=== PATIENT | male | born 1970 | race Caucasian/White ===

== ENCOUNTER 2020-07-10 00:49 | Emergency (ER) | payer BC, SELFPAY ==
[2020-07-10 01:40] LABS: Absolute Lymphocytes (CBC) 2.6 K/uL (0.7-4.9); Basophils % 0.7 % (0-1.3); Hematocrit 41.4 % (39.6-49.0); Lymphocytes % 35.5 % (15.3-44.8); MPV 7.7 fL (7.6-11.3); Protime INR 0.88; RBC Red Blood Cell Count 4.55 M/uL (4.33-5.43)
[2020-07-10 02:16] LABS: ALT/SGPT 87 U/L (12-78); AST/SGOT 34 U/L (15-37); Albumin 3.7 g/dL (3.4-5.0); Alkaline Phosphatase 76 U/L (45-117); BUN Blood Urea Nitrogen 15 mg/dL (7-18); Bicarbonate 24 mmol/L (21-32); Bilirubin Direct 0.1 mg/dL (0-0.2); Bilirubin Total 0.4 mg/dL (0.2-1.0); Glucose Level 97 mg/dL (74-106); NT PRO-BNP 18 pg/mL (<125); Potassium 3.4 mmol/L (3.5-5.1); Protein, Total 7.6 g/dL (6.4-8.2); Sodium Level 139 mmol/L (136-145); Troponin (Emerg Dept Use Only) < 0.02 ng/mL (0.0-0.045)
[2020-07-10] MEDS ORDERED: NA CHLORIDE 0.9% 1,000 ML ONE (02:43)
[2020-07-10 02:58] LABS: Creatine Phosphokinase 149 U/L (39-308)
[2020-07-10 03:04] LABS: Barbiturates NEGATIVE (NEGATIVE); Benzodiazepines NEGATIVE (NEGATIVE); Cocaine NEGATIVE (NEGATIVE); METHAMPHETAM NEGATIVE (NEGATIVE); Methadone NEGATIVE (NEGATIVE); Opiates NEGATIVE (NEGATIVE); Phencyclidine NEGATIVE (NEGATIVE); THC Cannibis NEGATIVE (NEGATIVE)
[2020-07-10 03:26] LABS: Urine Blood 2+ (NEG); Urine Glucose NEGATIVE (NEG); Urine Protein NEGATIVE (NEG); Urine Specific Gravity 1.025 (1.005-1.030)
--- NOTE | 2020-07-10 05:02 | EDPHYS ---
Physician Documentation [facility] Name: Noah Barnes Age: 49 yrs Sex: Male : 1970 Arrival Date: 07/10/2020 Time: 00:55 Bed 4 Private MD: ED Physician Darrell Chopra HPI: 07/10 01:42 This 49 yrs old Male presents to ER via Ambulatory with complaints of mh7 Shoulder Pain, Palpitations, Dizziness, Nausea. 01:43 The patient presents with a history of heart racing. Context: The symptoms occur at mh7 rest. Onset: The symptoms/episode began/occurred today. Duration: The patient or guardian reports multiple episodes, that are intermittent, that wax and wane. Modifying factors: The symptoms are aggravated by nothing. The symptoms are alleviated by nothing. Associated signs and symptoms: Pertinent positives: chest pain, lightheadedness, nausea, Pertinent negatives: cough, fever, SOB, syncope, near-syncope, unusual stressors, vertigo, vomiting. Severity of symptoms: At their worst the symptoms were moderate today, in the emergency department the symptoms have improved moderately. Historical: - Allergies: 01:13 No Known Allergies; bb - Home Meds: 01:13 lisinopril 40 mg Oral tab 1 tab once daily [Active]; amlodipine 10 mg tab 1 tab once bb daily [Active]; - PMHx: 01:13 Hypertension; bb - PSHx: 01:13 None; bb - Immunization history:: Adult Immunizations up to date. - Social history:: Smoking status: Patient reports the use of cigarette tobacco products, denies chronic smoking, but will smoke occasionally, Patient uses alcohol, Patient/guardian denies using street drugs. ROS: 01:43 Constitutional: Negative for fever, chills, and weight loss, Eyes: Negative for injury, mh7 pain, redness, and discharge, ENT: Negative for injury, pain, and discharge, Neck: Negative for injury, pain, and swelling, Respiratory: Negative for shortness of breath, cough, wheezing, and pleuritic chest pain, Back: Negative for injury and pain, : Negative for injury, bleeding, discharge, and swelling, MS/Extremity: Negative for injury and deformity, Skin: Negative for injury, rash, and discoloration, Neuro: Negative for headache, weakness, numbness, tingling, and seizure, Psych: Negative for depression, anxiety, suicide ideation, homicidal ideation, and hallucinations, Allergy/Immunology: Negative for hives, rash, and allergies, Endocrine: Negative for neck swelling, polydipsia, polyuria, polyphagia, and marked weight changes, Hematologic/Lymphatic: Negative for swollen nodes, abnormal bleeding, and unusual bruising. Exam: 01:43 Constitutional: This is a well developed, well nourished patient who is awake, alert, mh7 and in no acute distress. Head/Face: Normocephalic, atraumatic. Eyes: Pupils equal round and reactive to light, extra-ocular motions intact. Lids and lashes normal. Conjunctiva and sclera are non-icteric and not injected. Cornea within normal limits. Periorbital areas with no swelling, redness, or edema. Neck: Trachea midline, no thyromegaly or masses palpated, and no cervical lymphadenopathy. Supple, full range of motion without nuchal rigidity, or vertebral point tenderness. No Meningismus. Chest/axilla: Normal chest wall appearance and motion. Nontender with no deformity. No lesions are appreciated. 01:43 Respiratory: Lungs have equal breath sounds bilaterally, clear to auscultation and percussion. No rales, rhonchi or wheezes noted. No increased work of breathing, no retractions or nasal flaring. Abdomen/GI: Soft, non-tender, with normal bowel sounds. No distension or tympany. No guarding or rebound. No evidence of tenderness throughout. Back: No spinal tenderness. No costovertebral tenderness. Full range of motion. Skin: Warm, dry with normal turgor. Normal color with no rashes, no lesions, and no evidence of cellulitis. MS/ Extremity: Pulses equal, no cyanosis. Neurovascular intact. Full, normal range of motion. Neuro: Awake and alert, GCS 15, oriented to person, place, time, and situation. Cranial nerves II-XII grossly intact. Motor strength 5/5 in all extremities. Sensory grossly intact. Cerebellar exam normal. Normal gait. Psych: Awake, alert, with orientation to person, place and time. Behavior, mood, and affect are within normal limits. 01:43 Cardiovascular: Rate: tachycardic, Rhythm: regular, Pulses: no pulse deficits are appreciated, Heart sounds: normal, normal S1and S2, Edema: is not appreciated, JVD: is not appreciated. Vital Signs: 01:09 BP 167 / 98; Pulse 114; Resp 16 S; Temp 97.8(O); Pulse Ox 98% on R/A; Weight 136.08 kg bb (R); Height 6 ft. 1 in. (185.42 cm) (R); Pain 4/10; 02:28 BP 135 / 89; Pulse 93; Resp 18; Pulse Ox 98% on R/A; mg2 04:19 BP 142 / 80; Pulse 76; Resp 18; Pulse Ox 100% on R/A; mg2 05:00 BP 127 / 76; Pulse 63; Resp 18; Pulse Ox 95% on R/A; wh 01:09 Body Mass Index 39.58 (136.08 kg, 185.42 cm) bb MDM: 04:59 Differential diagnosis: arrythmia, dehydration, stress disorder, Palpitations. Data [facility] reviewed: vital signs, nurses notes, lab test result(s), cardiac enzymes, CBC, electrolytes, urinalysis, urine drug screen, EKG, radiologic studies, plain films. Data interpreted: Pulse oximetry: on room air is 100 %. Interpretation: normal. Counseling: I had a detailed discussion with the patient and/or guardian regarding: the historical points, exam findings, and any diagnostic results supporting the discharge/admit diagnosis, the presence of at least one elevated blood pressure reading (>120/80) during this emergency department visit, lab results, radiology results, to return to the emergency department if symptoms worsen or persist or if there are any questions or concerns that arise at home. Response to treatment: the patient's symptoms have resolved after treatment, the patient's blood pressure is in an acceptable range, mental status has returned to baseline, the patient no longer shows bradycardia, the patient is not short of breath, the patient is not tachycardic, the patient's pain is gone, the patient's temperature has normalized. Refusal of service: The patient/guardian displays adequate decision making capability and despite a detailed discussion of alternatives, benefits, risks, and consequences refuses: Admission to the hospital for further work-up and treatment. 05:01 Patient medically screened. mh7 07/10 01:12 Order name: Basic Metabolic Panel; Complete Time: 03:38 mg2 07/10 01:12 Order name: CBC with Diff; Complete Time: 01:53 mg2 07/10 01:12 Order name: LFT's; Complete Time: 03:38 mg2 07/10 01:12 Order name: Magnesium; Complete Time: 03:38 mg2 07/10 01:12 Order name: NT PRO-BNP; Complete Time: 03:38 mg2 07/10 01:12 Order name: PT-INR; Complete Time: 03:38 mg2 07/10 01:12 Order name: Troponin (emerg Dept Use Only); Complete Time: 03:38 mg2 07/10 01:53 Order name: UDS; Complete Time: 03:38 7 07/10 01:58 Order name: Thyroid Stimulating Hormone; Complete Time: 03:38 EDMS 07/10 02:13 Order name: Urine Dipstick--Ancillary (enter results); Complete Time: 03:38 mt 07/10 02:21 Order name: D-Dimer [facility] 07/10 02:21 Order name: CPK [facility] 07/10 01:12 Order name: XRAY Chest (1 view) [facility] 07/10 01:12 Order name: EKG; Complete Time: 01:13 mg2 07/10 01:12 Order name: Cardiac monitoring; Complete Time: 01:25 mg2 07/10 01:12 Order name: EKG - Nurse/Tech; Complete Time: 01:12 mg2 07/10 01:12 Order name: IV Saline Lock; Complete Time: 01:25 mg2 07/10 01:12 Order name: Labs collected and sent; Complete Time: 01:25 mg2 07/10 01:12 Order name: O2 Per Protocol; Complete Time: 01:25 mg2 07/10 01:12 Order name: O2 Sat Monitoring; Complete Time: 01:25 mg2 07/10 01:53 Order name: Urine Dipstick-Ancillary (obtain specimen); Complete Time: 02:20 7 07/10 02:46 Order name: D-Dimer; Complete Time: 03:38 EDMS 07/10 02:46 Order name: Creatine Phosphokinase; Complete Time: 03:38 EDMS 07/10 04:13 Order name: Troponin (emerg Dept Use Only) [facility] 07/10 04:14 Order name: Troponin (Emerg Dept Use Only); Complete Time: 04:56 EDMS Administered Medications: 02:22 Drug: NS 0.9% 1000 ml Route: IV; Rate: 1000 ml; Site: right antecubital; mg2 05:10 Follow up: Response: No adverse reaction; IV Status: Completed infusion wh Disposition: 07/10/20 05:01 Discharged to Home. Impression: Palpitations, Chest pain, unspecified. - Condition is Stable. - Discharge Instructions: Nonspecific Chest Pain, Qmdl-te-[id number], Palpitations, [id number]-[id number]. - Medication Reconciliation Form, Thank You Letter, Antibiotic Education, Prescription Opioid Use form. - Follow up: Private Physician; When: 1 - 2 days; Reason: Worsening of condition, Recheck today's complaints, Continuance of care, Re-evaluation by your physician. Follow up: Kev Ochoa MD; When: 1 - 2 days; Reason: Worsening of condition, Recheck today's complaints. - Problem is new. - Symptoms have improved. Signatures: Dispatcher [employer] EDIA Pennie Avila RN RN Ling Pacheco RN RN Justin Velazquez RN RN [facility] Darrell Chopra MD MD mh7 Corrections: (The following items were deleted from the chart) 01:57 01:53 THYROID STIMULAT HORMONE+C.LAB.BRZ ordered. [facility] EDMS 02:45 02:21 D-Dimer ordered. [facility] EDIA 02:45 02:21 Creatine Phosphokinase ordered. [facility] EDMS 05:10 05:01 07/10/2020 05:01 Discharged to Home. Impression: Palpitations; Chest pain, wh unspecified. Condition is Stable. Forms are Medication Reconciliation Form, Thank You Letter, Antibiotic Education, Prescription Opioid Use. Follow up: Private Physician; When: 1 - 2 days; Reason: Worsening of condition, Recheck today's complaints, Continuance of care, Re-evaluation by your physician. Follow up: Kev Ochoa; When: 1 - 2 days; Reason: Worsening of condition, Recheck today's complaints. Problem is new. Symptoms have improved. mh7
--- NOTE | 2020-07-10 05:02 | ER ---
Nurse's Notes [facility] Name: Noah Barnes Age: 49 yrs Sex: Male : 1970 Arrival Date: 07/10/2020 Time: 00:55 Bed 4 Private MD: Diagnosis: Palpitations;Chest pain, unspecified Presentation: 07/10 01:09 Chief complaint: Patient states: he was having trouble sleeping and was at his computer bb when he started having non-radiating left arm pain and felt his heart racing with a small bout of nausea and he felt light-headed. Coronavirus screen: At this time, the client does not indicate any symptoms associated with coronavirus-19. Ebola Screen: No symptoms or risks identified at this time. Initial Sepsis Screen: Does the patient meet any 2 criteria? No. Patient's initial sepsis screen is negative. Does the patient have a suspected source of infection? No. Patient's initial sepsis screen is negative. Risk Assessment: Do you want to hurt yourself or someone else? Patient reports no desire to harm self or others. Onset of symptoms was July 10, 2020. 01:09 Method Of Arrival: Ambulatory bb 01:09 Acuity: ISMAEL 3 bb Triage Assessment: 01:13 General: Appears in no apparent distress. obese, Behavior is calm, cooperative. Pain: bb Complains of pain in left arm Pain currently is 4 out of 10 on a pain scale. Neuro: Level of Consciousness is awake, alert, obeys commands, Oriented to person, place, time, situation. Cardiovascular: Capillary refill < 3 seconds Patient's skin is warm and dry. Respiratory: Respiratory effort is even, unlabored, Respiratory pattern is regular. GI: Reports pt does not report any GI symptoms. Derm: Skin is pink, warm \T\ dry. Musculoskeletal: Circulation, motion, and sensation intact. Historical: - Allergies: 01:13 No Known Allergies; bb - Home Meds: :13 lisinopril 40 mg Oral tab 1 tab once daily [Active]; amlodipine 10 mg tab 1 tab once bb daily [Active]; - PMHx: 01:13 Hypertension; bb - PSHx: 01:13 None; bb - Immunization history:: Adult Immunizations up to date. - Social history:: Smoking status: Patient reports the use of cigarette tobacco products, denies chronic smoking, but will smoke occasionally, Patient uses alcohol, Patient/guardian denies using street drugs. Screenin:26 Abuse screen: Denies threats or abuse. Denies injuries from another. Nutritional mg2 screening: No deficits noted. Tuberculosis screening: No symptoms or risk factors identified. Fall Risk IV access (20 points). Assessment: 01:25 General: Appears in no apparent distress. comfortable, Behavior is calm, cooperative. mg2 Pain: Complains of pain in left arm. Neuro: Level of Consciousness is awake, alert, obeys commands, Oriented to person, place, time, situation. Cardiovascular: Capillary refill < 3 seconds Patient's skin is warm and dry. Cardiovascular: Reports palpitations. Respiratory: Airway is patent Respiratory effort is even, unlabored, Respiratory pattern is regular, symmetrical. GI: No signs and/or symptoms were reported involving the gastrointestinal system. GI: No signs and/or symptoms were reported involving the gastrointestinal system. : No signs and/or symptoms were reported regarding the genitourinary system. EENT: No signs and/or symptoms were reported regarding the EENT system. Derm: Skin is intact, is healthy with good turgor, Skin is pink, warm \T\ dry. normal. Musculoskeletal: Circulation, motion, and sensation intact. Capillary refill < 3 seconds. 02:29 Reassessment: Patient appears in no apparent distress at this time. Patient and/or mg2 family updated on plan of care and expected duration. Pain level reassessed. Patient is alert, oriented x 3, equal unlabored respirations, skin warm/dry/pink. 03:30 Reassessment: Patient appears in no apparent distress at this time. Patient and/or wh family updated on plan of care and expected duration. Pain level reassessed. Patient is alert, oriented x 3, equal unlabored respirations, skin warm/dry/pink. GI: No signs and/or symptoms were reported involving the gastrointestinal system. 05:00 Reassessment: Patient appears in no apparent distress at this time. Patient and/or wh family updated on plan of care and expected duration. Pain level reassessed. Patient is alert, oriented x 3, equal unlabored respirations, skin warm/dry/pink. Vital Signs: 01:09 BP 167 / 98; Pulse 114; Resp 16 S; Temp 97.8(O); Pulse Ox 98% on R/A; Weight 136.08 kg bb (R); Height 6 ft. 1 in. (185.42 cm) (R); Pain 4/10; 02:28 BP 135 / 89; Pulse 93; Resp 18; Pulse Ox 98% on R/A; mg2 04:19 BP 142 / 80; Pulse 76; Resp 18; Pulse Ox 100% on R/A; mg2 05:00 BP 127 / 76; Pulse 63; Resp 18; Pulse Ox 95% on R/A; wh 01:09 Body Mass Index 39.58 (136.08 kg, 185.42 cm) ED Course: 00:55 Patient arrived in ED. cf2 01:03 Justin Velazquez, JAMES is Primary Nurse. mg2 01:09 Darrell Chopra MD is Attending Physician. 7 01:12 Triage completed. bb 01:13 Arm band placed on Patient placed in an exam room, on a stretcher, on cardiac cath technologist, bb on pulse oximetry. EKG completed in triage. Results shown to MD. 01:26 Patient has correct armband on for positive identification. mg2 01:26 No provider procedures requiring assistance completed. Inserted saline lock: 20 gauge mg2 in right antecubital area, using aseptic technique. Blood collected. 01:53 XRAY Chest (1 view) In Process Unspecified. EDMS 05:00 Kev Ochoa MD is Referral Physician. 7 05:09 IV discontinued, intact, bleeding controlled, No redness/swelling at site. Administered Medications: 02:22 Drug: NS 0.9% 1000 ml Route: IV; Rate: 1000 ml; Site: right antecubital; mg2 05:10 Follow up: Response: No adverse reaction; IV Status: Completed infusion Outcome: 05:01 Discharge ordered by . 7 05:08 Discharged to home ambulatory. 05:08 Condition: stable 05:08 Discharge instructions given to patient, Instructed on discharge instructions, follow up and referral plans. POC Demonstrated understanding of instructions, follow-up care, POC 05:10 Patient left the ED. Signatures: Dispatcher [employer] EDMS Pennie Avila RN RN Ling Pacheco RN RN Justin Velazquez RN RN [facility] Alonzo Stafford 2 Darrell Chopra MD MD mh7
[2020-07-10 08:02] VITALS: TEMP 97.8
[2020-07-10 08:06] VITALS: BP 127/76; O2SAT 95
--- NOTE | 2020-07-10 11:04 | RAD REPORT ---
EXAM DESCRIPTION: RAD - Chest Single View - 07/10/2020 1:52 am CLINICAL HISTORY: 49 years Male, CHEST PAIN COMPARISON: None. FINDINGS: No consolidation. No pneumothorax. No significant pleural effusion. Cardiomediastinal silhouette is unremarkable. Osseous structures are unremarkable. IMPRESSION: No acute findings. 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 The interpreting r adiologist is fully responsible for the content of the report.
--- NOTE | 2020-07-10 17:08 | EKG ---
Test Date: 2020-07-10 Test Time: 01:08:31 Manager Image: MEASUREMENT RESULTS: Intervals: Rate: 113 MO: 160 QRSD: 106 QT: 334 QTc: 458 [place]: P: 50 MO: 160 QRS: 31 T: -16 INTERPRETIVE STATEMENTS: Sinus tachycardia Possible Left atrial enlargement Cannot rule out Anterior infarct, age undetermined T wave abnormality, consider inferior ischemia Abnormal ECG No previous ECG available for comparison Electronically Signed On 07-10-20 17:06:09 HAND COMPOSITOR by Kev Ochoa
== END 2020-07-10 05:10 | disposition home or self-care (01) ==
LOC: ER 00:49
DX: R07.9 Chest pain, unspecified (principal); I10 Essential (primary) hypertension; F17.210 Nicotine dependence, cigarettes, uncomplicated
CPT/HCPCS: 96361; 93005; 85025; 80048; 36415; 83735; 82550; 85610; 85379; 80076; 80307 ×8; 84443; 81003; 84484 ×2; 83880; 71045; 96360; 99284; J7030

== ENCOUNTER 2024-03-31 17:59 | Emergency (ER) | payer OTHER ==
[2024-03-31] MEDS ORDERED: ASPIRIN 81 MG CHEWABLE TABLET ONE (18:27)
[2024-03-31 18:46] LABS: Absolute Basophils 0.1 K/uL (0-0.5); Absolute Eosinophils 0.1 K/uL (0-0.5); Absolute Lymphocytes (CBC) 2.1 K/uL (0.7-4.9); Absolute Monocytes 0.4 K/uL (0.1-1.3); Absolute Neutrophil 4.1 K/uL (1.8-8.0); Eosinophils % 1.5 % (0-4.4); Hematocrit 41.4 % (39.6-49.0); Hemoglobin 14.1 g/dL (13.6-17.9); Lymphocytes % 30.9 % (15.3-44.8); MCH 32.3 pg (27.0-35.0); MPV 7.6 fL (7.6-11.3); Monocytes % 5.7 % (3.3-12.3); Neutrophils % 60.9 % (41.7-73.7); Platelets 196 thou/uL (152-406); RBC Red Blood Cell Count 4.36 M/uL (4.33-5.43); Red Cell Distribution Width 12.9 % (12.1-15.2)
--- NOTE | 2024-03-31 18:52 | RAD REPORT ---
Procedure: Chest Single View HISTORY: Chest pain COMPARISON: January 2024 FINDINGS: The lungs appear clear of acute infiltrate. No significant pleural effusion noted. The heart is normal size. IMPRESSION: No acute abnormality is displayed.
[2024-03-31 19:12] LABS: D-Dimer 0.42 FEUug/mL (0-0.500); Protime INR 1.07
[2024-03-31 19:16] LABS: Albumin/Globulin Ratio 1.1 (1.1-1.8); Anion Gap 10.7 mEq/L (5.0-15.0); Bilirubin Total 0.6 mg/dL (0.2-1.0); Globulin 3.7 g/dL (2.3-3.5); Magnesium 1.9 mg/dL (1.6-2.4); Potassium 3.7 mEq/L (3.5-5.1); Protein, Total 7.7 g/dL (6.4-8.2); T4,Total 9.3 ug/dL (4.5-12.1); Thyroid Stimulating Hormone 1.22 uIU/mL (0.358-3.740); Troponin High Sensitivity 6.9 pg/mL (<58.9)
[2024-03-31 19:26] LABS: Bilirubin Direct 0.2 mg/dL (0-0.2); Bilirubin Indirect, Calculated 0.4 mg/dL (0.2-0.8); T3 Free 2.44 pg/mL (2.18-3.98)
--- NOTE | 2024-03-31 22:45 | EDPHYS ---
Physician Documentation [facility] Name: Noah Barnes Age: 53 yrs Sex: Male : 1970 Arrival Date: 03/31/2024 Time: 17:59 Bed 6 Private MD: Jose Smith Frank ED Physician Chandu Navarrete HPI: 03/31 18:15 This 53 yrs old Male presents to ER via Ambulatory with complaints of Irregular Pulse, cp Chest Pain, Shortness Of Breath. 18:15 The patient or guardian reports chest pain that is located primarily in the anterior cp chest wall. Onset: today. Associated signs and symptoms: Pertinent positives: palpitations, shortness of breath, Pertinent negatives: abdominal pain, cough, diaphoresis, lower extremity pain, lower extremity swelling, edema. The chest pain is described as a pressure. Duration: The patient or guardian reports a single episode, that is now resolved. 18:15 Severity of pain: in the emergency department the pain has resolved racing heart cp improved. The patient has experienced similar episodes in the past, takes diltiazem that has been prescribed by combiner after having reaction to propanolol. Historical: - Allergies: 18:09 No Known Allergies; ko1 - PMHx: 18:09 Hypertension; ko1 - PSHx: 18:09 gastric sleeve; ko1 - Immunization history:: Adult Immunizations up to date. - Infectious Disease History:: Denies. - Social history:: Smoking status: Patient denies any tobacco usage or history of. ROS: 18:18 Constitutional: Negative for body aches, chills, fever, poor PO intake, cp 18:18 Cardiovascular: Positive for chest pain, palpitations, cp 18:18 Respiratory: Positive for shortness of breath, 18:18 Eyes: Negative for injury, pain, redness, and discharge, cp 18:18 ENT: Negative for drainage from ear(s), ear pain, sore throat, difficulty swallowing, cp difficulty handling secretions, 18:18 Abdomen/GI: Negative for abdominal pain, nausea, vomiting, and diarrhea, 18:18 Neuro: Negative for altered mental status, dizziness, headache, syncope, near syncope, weakness, 18:18 All other systems are negative, Exam: 18:20 ECG was reviewed by the Attending Physician. cp 18:23 Constitutional: The patient appears in no acute distress, alert, awake, cp non-diaphoretic, non-toxic, well developed, well nourished, 18:23 Head/Face: Normocephalic, atraumatic. cp 18:23 Eyes: Periorbital structures: appear normal, Conjunctiva: normal, no exudate, no injection, Sclera: no appreciated abnormality, Lids and lashes: appear normal, bilaterally, 18:23 ENT: External ear(s): are unremarkable, Nose: is normal, Mouth: Lips: moist, Oral mucosa: moist, Posterior pharynx: Airway: no evidence of obstruction, patent, 18:23 Neck: ROM/movement: is normal, is supple, without pain, no range of motions limitations, no nuchal rigidity, 18:23 Chest/axilla: Inspection: normal, 18:23 Cardiovascular: Rate: normal, Rhythm: regular, Edema: is not appreciated, JVD: is not appreciated, 18:23 Respiratory: the patient does not display signs of respiratory distress, Respirations: normal, no use of accessory muscles, no retractions, labored breathing, is not present, Breath sounds: are clear throughout, no decreased breath sounds, no stridor, no wheezing, 18:23 Abdomen/GI: Inspection: abdomen appears normal, Palpation: abdomen is soft and non-tender, in all quadrants, 18:23 Back: pain, is absent, ROM is normal, 18:23 Neuro: Orientation: to person, place \T\ time. Mentation: is normal, Motor: moves all fours, strength is normal, Sensation: is normal, Vital Signs: 18:06 BP 153 / 101; Pulse 96; Resp 18; Temp 98.8; Pulse Ox 100% ; ko1 18:45 BP 144 / 88; Pulse 74; Resp 14; Pulse Ox 99% on R/A; jb4 20:02 BP 142 / 86; Pulse 71; Resp 13; Pulse Ox 100% on R/A; jb4 23:26 BP 124 / 75; Pulse 63; Resp 16; Pulse Ox 99% on R/A; jb4 MDM: 18:08 Medical Screening Exam initiated cp 19:00 Differential diagnosis: acute myocardial infarction, anxiety, pericarditis, pleurisy, cp pneumonia, pneumothorax, pulmonary embolus. 22:43 Data reviewed: vital signs, nurses notes, lab test result(s), EKG, radiologic studies, cp plain films, and as a result, I will discharge patient. 22:44 Care significantly affected by the following chronic conditions: Hypertension. cp 22:44 Counseling: I had a detailed discussion with the patient and/or guardian regarding the cp historical points, exam findings, and any diagnostic results supporting the discharge/admit diagnosis, lab results, radiology results, the need for outpatient follow up, a combiner. Response to treatment: the patient's symptoms have markedly improved after treatment, and as a result, I will discharge patient. Special discussion: Based on the patient's history, exam, and Dx evaluation, there is no indication for emergent intervention or inpatient Tx. It is understood by the patient/guardian that if the Sx's persist or worsen they need to return immediately for re-evaluation. 03/31 18:15 Order name: Basic Metabolic Panel; Complete Time: 19:32 cp 03/31 19:32 Interpretation: Normal except: GFR 72. cp 03/31 18:15 Order name: CBC with Diff; Complete Time: 19:32 cp 03/31 18:15 Order name: D-Dimer; Complete Time: 19:32 cp 03/31 18:15 Order name: LFT's; Complete Time: 19:32 cp 03/31 19:32 Interpretation: Normal except: GLOB 3.7. cp 03/31 18:15 Order name: Magnesium; Complete Time: 19:32 cp 03/31 18:15 Order name: NT PRO-BNP; Complete Time: 19:32 cp 03/31 18:15 Order name: PT-INR; Complete Time: 19:32 cp 03/31 18:15 Order name: Troponin HS; Complete Time: 19:32 cp 03/31 19:32 Interpretation: Reviewed. cp 03/31 18:16 Order name: TSH; Complete Time: 19:32 cp 03/31 18:16 Order name: T3 Free; Complete Time: 19:32 cp 03/31 18:16 Order name: T4,Total; Complete Time: 19:32 cp 20 20:40 Order name: Urinalysis w/ reflexes; Complete Time: 23:23 cp 11 23:24 Interpretation: Normal except: UKET 1+. cp 03/31 21:00 Order name: Troponin HS; Complete Time: 22:20 cp 11 22:20 Interpretation: Reviewed. cp 03/31 18:15 Order name: XRAY Chest (1 view); Complete Time: 19:32 cp 03/31 18:15 Order name: Cardiac monitoring; Complete Time: 18:17 cp 03/31 18:15 Order name: EKG - Nurse/Tech; Complete Time: 18:17 cp 03/31 18:15 Order name: IV Saline Lock; Complete Time: 18:45 cp 03/31 18:15 Order name: Labs collected and sent; Complete Time: 18:45 cp 03/31 18:15 Order name: O2 Per Protocol; Complete Time: 18:45 cp 03/31 18:15 Order name: O2 Sat Monitoring; Complete Time: 18:45 cp 03/31 18:50 Order name: Misc. Order: RECOLLECT BLUE TOP; Complete Time: 19:01 rv1 EC: Rate is 88 beats/min. Rhythm is regular. MD interval is normal. QRS interval is cp prolonged at 112 msec. QT interval is normal. T waves are Inverted in lead aVR. Interpreted by me. Reviewed by me. Administered Medications: 18:36 Drug: Aspirin PO Chewable Tablet 324 mg PO once; 81 mg tablets x 4 Route: PO; rs5 Disposition Summary: 03/31/24 22:44 Discharge Ordered Notes: Location: Home cp Problem: new cp Symptoms: have improved cp Condition: Stable cp Diagnosis - Chest pain, unspecified cp - Palpitations cp Followup: cp - With: Private Physician - When: 2 - 3 days - Reason: Recheck today's complaints, primary combiner Discharge Instructions: - Discharge Summary Sheet cp - Nonspecific Chest Pain, Adult cp - Palpitations cp - Aspirin and Your Heart cp - Ambulatory Cardiac Monitoring cp Forms: - Medication Reconciliation Form cp - Antibiotic Education cp - Prescription Opioid Use cp - Patient Portal Instructions cp - Leadership Thank You Letter cp Addendum: 04/06/2024 17:19 Co-signature as Attending Physician, Chandu Navarrete MD I reviewed the patient's care r n provided by the Advanced Practice Provider and agree with the diagnosis and treatment plan. Signatures: Dispatcher [employer] Chandu Loyola MD MD rn Page, Corey, PA PA cp Freda Alfonso RN RN ko1 Kassandra Armendariz rv1 Yepez, Piotr, RN RN rs5
--- NOTE | 2024-03-31 22:45 | ER ---
Nurse's Notes [facility] Name: Noah Barnes Age: 53 yrs Sex: Male : 1970 Arrival Date: 03/31/2024 Time: 17:59 Bed 6 Private MD: Jose Smith Frank Diagnosis: Chest pain, unspecified;Palpitations Presentation: 03/31 18:06 Chief complaint: Patient states: chest pain, short of breath, pulse feels irregular. ko1 Coronavirus screen: At this time, the client does not indicate any symptoms associated with coronavirus-19. Ebola Screen: No symptoms or risks identified at this time. Initial Sepsis Screen: Does the patient meet any 2 criteria? No. Patient's initial sepsis screen is negative. Does the patient have a suspected source of infection? No. Patient's initial sepsis screen is negative. Risk Assessment: Do you want to hurt yourself or someone else? Patient reports no desire to harm self or others. Onset of symptoms is unknown. 18:06 Method Of Arrival: Ambulatory ko1 18:06 Acuity: ISMAEL 3 ko1 Triage Assessment: 18:09 General: Appears in no apparent distress. Behavior is calm, cooperative, appropriate ko1 for age. Pain: Complains of pain in chest. Cardiovascular: Reports chest pain. Historical: - Allergies: 18:09 No Known Allergies; ko1 - PMHx: 18:09 Hypertension; ko1 - PSHx: 18:09 gastric sleeve; ko1 - Immunization history:: Adult Immunizations up to date. - Infectious Disease History:: Denies. - Social history:: Smoking status: Patient denies any tobacco usage or history of. Screenin:45 [facility] ED Fall Risk Assessment (Adult) History of falling in the last 3 months, jb4 including since admission No falls in past 3 months (0 pts) Confusion or Disorientation No (0 pts) Intoxicated or Sedated No (0 pts) Impaired Gait No (0 pts) Mobility Assist Device Used No (0 pt) Altered Elimination No (0 pt) Score/Fall Risk Level 0 - 2 = Low Risk Oriented to surroundings, Maintained a safe environment. Abuse screen: Denies threats or abuse. Nutritional screening: No deficits noted. Tuberculosis screening: No symptoms or risk factors identified. Assessment: 18:41 General: Appears in no apparent distress. comfortable, Behavior is calm, cooperative, jb4 appropriate for age. Pain: Complains of pain in chest Pain does not radiate. Pain currently is 0 out of 10 on a pain scale. at worst was 6 out of 10 on a pain scale. Neuro: Level of Consciousness is awake, alert, obeys commands, Oriented to person, place, time, situation. Cardiovascular: Patient's skin is warm and dry. Respiratory: Airway is patent Respiratory effort is even, unlabored, Respiratory pattern is regular, symmetrical. GI: No signs and/or symptoms were reported involving the gastrointestinal system. : No signs and/or symptoms were reported regarding the genitourinary system. Derm: Skin is intact, Skin is pink, warm \T\ dry. Musculoskeletal: Circulation, motion, and sensation intact. Range of motion: intact in all extremities. 20:02 Reassessment: Patient appears in no apparent distress at this time. Patient and/or jb4 family updated on plan of care and expected duration. Pain level reassessed. Patient is alert, oriented x 3, equal unlabored respirations, skin warm/dry/pink. 23:07 Reassessment: Patient appears in no apparent distress at this time. Patient and/or jb4 family updated on plan of care and expected duration. Pain level reassessed. Patient is alert, oriented x 3, equal unlabored respirations, skin warm/dry/pink. D/c pending urine results. Vital Signs: 18:06 BP 153 / 101; Pulse 96; Resp 18; Temp 98.8; Pulse Ox 100% ; ko1 18:45 BP 144 / 88; Pulse 74; Resp 14; Pulse Ox 99% on R/A; jb4 20:02 BP 142 / 86; Pulse 71; Resp 13; Pulse Ox 100% on R/A; jb4 23:26 BP 124 / 75; Pulse 63; Resp 16; Pulse Ox 99% on R/A; jb4 ED Course: 18:00 Patient arrived in ED. mr 18:00 Js Smith is Private Physician. mr 18:03 Alin Vicente MD is Private Physician. mr 18:08 Darrell Wilkins PA is PHCP. cp 18:08 Chandu Navarrete MD is Attending Physician. cp 18:09 Triage completed. ko1 18:09 Arm band placed on right wrist. Patient placed in an exam room, on a stretcher, on ko1 property assessment monitor, on pulse oximetry, Patient notified of wait time. 18:20 Boyd Ferreira, RN is Primary Nurse. jb4 18:36 Inserted saline lock: 18 gauge in right forearm, using aseptic technique. Blood jb4 collected. 18:41 XRAY Chest (1 view) In Process Unspecified. EDMS 18:45 Basic Metabolic Panel Sent. jb4 18:45 CBC with Diff Sent. jb4 18:45 D-Dimer Sent. jb4 18:45 LFT's Sent. jb4 18:45 Magnesium Sent. jb4 18:45 NT PRO-BNP Sent. jb4 18:45 PT-INR Sent. jb4 18:45 TSH Sent. jb4 18:45 T3 Free Sent. jb4 18:45 T4,Total Sent. jb4 19:00 Patient has correct armband on for positive identification. Bed in low position. Call jb4 light in reach. Side rails up X 1. Provided Education on: discharge instructions.. Client placed on continuous cardiac and pulse oximetry monitoring. NIBP monitoring applied. quality assurance monitor chassis on. 23:27 No provider procedures requiring assistance completed. IV discontinued, intact, jb4 bleeding controlled, No redness/swelling at site. Pressure dressing applied. 23:27 Patient maintains SpO2 saturation greater than 95% on room air. jb4 Administered Medications: 18:36 Drug: Aspirin PO Chewable Tablet 324 mg PO once; 81 mg tablets x 4 Route: PO; rs5 Medication: 18:45 VIS not applicable for this client. jb4 Outcome: 22:44 Discharge ordered by . jimenez 23:27 Discharged to home ambulatory, jb4 23:27 Condition: stable 23:27 Discharge instructions given to patient, Instructed on discharge instructions, follow up and referral plans. Demonstrated understanding of instructions, follow-up care, 23:28 Patient left the ED. jb4 Signatures: Dispatcher [employer] EDWI ZimmerPauline kahn, Reg Reg mr Darrell Wilkins PA PA cp Bryson, James, JAMES RN jb4 Freda Alfonso RN RN ko1 Piotr Yepez RN RN rs5 Corrections: (The following items were deleted from the chart) 23:07 23:07 Reassessment: Patient appears in no apparent distress at this time. Patient jb4 and/or family updated on plan of care and expected duration. Pain level reassessed. Patient is alert, oriented x 3, equal unlabored respirations, skin warm/dry/pink. jb4
[2024-03-31 23:16] LABS: Sqamous Epithelial None Seen /HPF (None Seen); Urine Bacteria None Seen /HPF (<20); Urine Bilirubin NEGATIVE (Negative); Urine Blood Negative (Negative); Urine Clarity Clear (Clear); Urine Color Light-Yellow (Yellow); Urine Culture Reflex Order NOT NEEDED; Urine Glucose NEGATIVE (Negative); Urine Ketones 1+ (Negative); Urine Microscopic Reflex YN ORDER UMIC; Urine Nitrite NEGATIVE (Negative); Urine Protein NEGATIVE (Negative); Urine RBC None Seen /HPF (None Seen); Urine Urobilinogen Normal (Normal); Urine WBC <5 /HPF (<5)
[2024-03-31 23:46] VITALS: TEMP 98.8
[2024-03-31 23:54] VITALS: BP 124/75; O2SAT 99
--- NOTE | 2024-04-01 11:00 | EKG ---
Test Date: 2024-03-31 Test Time: 18:13:45 Geophysical Drafter: LMEdin MEASUREMENT RESULTS: Intervals: Rate: 88 OK: 162 QRSD: 112 QT: 370 QTc: 447 [place]: P: 55 OK: 162 QRS: 28 T: 24 INTERPRETIVE STATEMENTS: Normal sinus rhythm Normal ECG Compared to ECG 02/07/2024 15:13:42 Sinus tachycardia no longer present Left ventricular hypertrophy no longer present Myocardial infarct finding no longer present Electronically Signed On 04-01-24 11:00:20 APPAREL CUTTER by Amrik Ann
== END 2024-03-31 23:28 | disposition home or self-care (01) ==
LOC: ER 17:59
DX: R07.89 Other chest pain (principal); R00.2 Palpitations; I10 Essential (primary) hypertension
CPT/HCPCS: 36415; 71045; 80048; 80076; 81001; 83735; 83880; 84436; 84443; 84481; 84484; 85025; 85379; 85610; 93005; 99284